=== PATIENT | female | born 1990 | race Two or more races ===

== ENCOUNTER 2020-02-13 08:45 | Inpatient (IN) ==
[2020-02-13] MEDS ORDERED: BUTORPHANOL 2 MG/ML VIAL IV PRN (09:09)
[2020-02-13] MEDS ORDERED: MEPERIDINE 50 MG/1 ML VIAL IM PRN (09:09)
[2020-02-13] MEDS ORDERED: ONDANSETRON 4 MG/2 ML VIAL IV PRN (09:09)
[2020-02-13] MEDS ORDERED: CITRIC ACID/SODIUM CITRATE 30 ML UDCUP PO ONE (09:20)
[2020-02-13] MEDS ORDERED: NALOXONE 0.4 MG/ML VIAL IV PRN (09:20)
[2020-02-13] MEDS ORDERED: FAMOTIDINE 20 MG/2 ML VIAL IV ONE (09:20)
[2020-02-13] MEDS ORDERED: PROMETHAZINE 25 MG/1 ML VIAL IM ONE (09:20)
[2020-02-13] MEDS ORDERED: ePHEDrine 50 MG/ML AMP IV PRN (09:20)
[2020-02-13] MEDS ORDERED: LACTATED RINGERS 1,000 ML IV ONE (09:20)
[2020-02-13] MEDS ORDERED: diphenhydrAMINE 50 MG/1 ML VIAL IV PRN ×2 (09:20)
[2020-02-13] MEDS ORDERED: LACTATED RINGERS 250 ML IV PRN (09:20)
[2020-02-13] MEDS ORDERED: hydrOXYzine HCL 25 MG/1 ML VIAL IM PRN (09:20)
[2020-02-13] MEDS ORDERED: ONDANSETRON 4 MG/2 ML VIAL IV ONE (09:20)
[2020-02-13] MEDS ORDERED: AMPICILLIN INJ 2,000 MG in SODIUM CHLORIDE 0.9% 100 ML IV ONE (09:21)
[2020-02-13] MEDS ORDERED: AMPICILLIN 2,000 MG VIAL ONE (09:23)
[2020-02-13] MEDS ORDERED: fentaNYL 2 MCG/ROPIV 0.2% EPID 100 ML EPIDURAL SCH (09:30)
[2020-02-13] MEDS ORDERED: LACTATED RINGERS 1,000 ML IV SCH (09:30)
[2020-02-13] MEDS ORDERED: OXYTOCIN/LR 20 UNIT/1,000 ML BAG IV SCH (09:30)
[2020-02-13 09:39] LABS: Basophils % 0.1 % (0.0-0.8); Hematocrit 38.8 VOL% (35.7-47.0); Hemoglobin 12.8 GM/DL (12.0-16.0); Immature Granulocytes % 0.5 %; Immature Granulocytes Absolute 0.07 #; Lymphocytes # 1.7 10*3/uL (1.4-4.0); Lymphocytes % 12.2 % (21.3-54.2); Mean Corpuscular Volume 86.6 FL (87-102); Mean Platelet Volume 10.4 FL (9.6-12.0); Monocytes % 4.4 % (1.7-12.7); Neutrophils % 82.8 % (38.7-73.9); Platelet Count 282 T/CUMM (130-400); Red Blood Count 4.48 MC/CUMM (3.8-5.5); Red Cell Distribution Width 13.3 % (9.3-17.3); White Blood Count 13.8 T/CUMM (4-12)
[2020-02-13] MEDS ORDERED: miSOPROStoL 200 MCG TABLET ONE (11:44)
[2020-02-13] MEDS ORDERED: LIDOCAINE 1% 50 ML VIAL ONE (11:44)
[2020-02-13 12:42] LABS: Cord Arterial Blood HCO3 17.2 MMOL/L
[2020-02-13 12:47] LABS: Cord Venous Blood PO2 15.5
[2020-02-13] MEDS ORDERED: IBUPROFEN 800 MG TABLET ONE (15:42)
[2020-02-13] MEDS ORDERED: HYDROCORTISONE 2.5% RECTAL CREAM 30 GM TUBE TOP PRN (15:44)
[2020-02-13] MEDS ORDERED: WITCH HAZEL PADS 100/JAR TOP PRN (15:44)
[2020-02-13] MEDS ORDERED: ACETAMINOPHEN 325 MG TABLET PO PRN (15:44)
[2020-02-13] MEDS ORDERED: BENZOCAINE 20%/MENTHOL 0.5% SPRAY 56 GM CAN TOP PRN (15:44)
[2020-02-13] MEDS ORDERED: DIPH/TET/ACEL PERT BOOSTER VACCINE 0.5 ML VIAL IM ONE (15:44)
[2020-02-13] MEDS ORDERED: OXYTOCIN/LR 20 UNIT/1,000 ML BAG IV ONE (15:44)
[2020-02-13] MEDS ORDERED: MEASLES/MUMPS/RUBELLA VACCINE 0.5 ML VIAL SUBCUT ONE (15:44)
[2020-02-13] MEDS ORDERED: LANOLIN 50% CREAM 0.3 OZ TUBE TOP PRN (15:44)
[2020-02-13] MEDS ORDERED: oxyCODONE/ACETAMINOPHEN 5-325 MG TABLET PO PRN (15:44)
[2020-02-13] MEDS ORDERED: RHO(D) IMMUNE GLOBULIN 300 MCG SYRINGE IM ONE (15:44)
[2020-02-13] MEDS ORDERED: BISACODYL 10 MG SUPP RECTAL PRN (15:44)
[2020-02-13] MEDS: IBUPROFEN 800 MG TABLET PO PRN ×2 (15:57→23:04)
[2020-02-13] MEDS: DOCUSATE SODIUM 100 MG CAPSULE PO SCH (21:11)
[2020-02-14] MEDS: oxyCODONE/ACETAMINOPHEN 5-325 MG TABLET PO PRN ×4 (02:28→22:03)
[2020-02-14 06:01] LABS: Basophils % 0.3 % (0.0-0.8); Eosinophils # 0.3 10*3/uL (0.0-0.87); Eosinophils % 2.6 % (0.00-10.9); Hematocrit 35.4 VOL% (35.7-47.0); Hemoglobin 11.6 GM/DL (12.0-16.0); Immature Granulocytes % 0.4 %; Immature Granulocytes Absolute 0.05 #; Lymphocytes # 3.5 10*3/uL (1.4-4.0); Lymphocytes % 29.1 % (21.3-54.2); Mean Corpuscular HGB Conc 32.8 GM/DL (32-36); Mean Corpuscular Volume 85.7 FL (87-102); Mean Platelet Volume 10.5 FL (9.6-12.0); Monocytes % 6.5 % (1.7-12.7); Neutrophils % 61.1 % (38.7-73.9); Platelet Count 264 T/CUMM (130-400); Red Blood Count 4.13 MC/CUMM (3.8-5.5); Red Cell Distribution Width 13.5 % (9.3-17.3); White Blood Count 11.9 T/CUMM (4-12)
[2020-02-14] MEDS: IBUPROFEN 800 MG TABLET PO PRN ×3 (06:51→22:03)
[2020-02-14] MEDS: DOCUSATE SODIUM 100 MG CAPSULE PO SCH ×2 (08:43→21:17)
[2020-02-15] MEDS: IBUPROFEN 800 MG TABLET PO PRN (04:11)
[2020-02-15 07:30] VITALS: BP 122/71
[2020-02-15] MEDS: DOCUSATE SODIUM 100 MG CAPSULE PO SCH (08:30)
[2020-02-15] MEDS: oxyCODONE/ACETAMINOPHEN 5-325 MG TABLET PO PRN (08:33)
== END 2020-02-15 13:55 | disposition home or self-care (01) | DRG 807 ==
LOC: N.LDOUT 08:45 → N.LD 08:49 → N.OB 15:28
PROVIDERS: ADMIT Obstetrics & Gynecology; ATTEND Obstetrics & Gynecology